=== PATIENT | female | born 1985 | race Caucasian/White ===

== ENCOUNTER 2022-04-24 10:43 | Emergency (ER) | payer MEDICAID ==
[~2022-04-24] VITALS: Ht 165.1 cm; Wt 115.0 kg
[~2022-04-24 10:43] MED LIST: CETI10CA PO; MULT-1179 PO
[2022-04-24] MEDS ORDERED: cloNIDine 0.1 mg tablet PO STA (10:54)
[2022-04-24 12:41] LABS: BASOPHILS # (AUTO) 0.1 X10'3 (0-0.2); BASOPHILS % (AUTO) 0.9 % (0-1); EOSINOPHILS # (AUTO) 0.3 X10'3 (0-0.9); EOSINOPHILS % (AUTO) 2.2 % (0-6); HEMATOCRIT 42.1 % (35.0-45.0); HEMOGLOBIN 14.1 g/dl (12.0-16.0); LYMPHOCYTES # (AUTO) 3.2 X10'3 (1.1-4.8); LYMPHOCYTES % (AUTO) 26.7 % (21-51); MEAN CORPUSCULAR HEMOGLOBIN 29.4 PG (27.0-31.0); MEAN CORPUSCULAR HGB CONC 33.5 g/dL (33.0-36.5); MEAN CORPUSCULAR VOLUME 87.6 FL (78-98); MONOCYTES # (AUTO) 0.3 X10'3 (0-0.9); MONOCYTES % (AUTO) 2.9 % (2-12); NEUTROPHILS % (AUTO) 67.3 % (42-75); PLATELET COUNT 358 X10'3 (140-440); RED BLOOD COUNT 4.81 X10'6 (4.20-5.60); RED CELL DISTRIBUTION WIDTH 13.4 % (11.5-14.5); WHITE BLOOD COUNT 11.9 X10'3 (4.5-11.0)
[2022-04-24 12:52] LABS: ALANINE AMINOTRANSFERASE 50 U/L (12-78); ALBUMIN 3.6 G/DL (3.4-5.0); ALBUMIN/GLOBULIN RATIO 0.8 (1.1-1.5); ALKALINE PHOSPHATASE 116 IU/L (46-116); ANION GAP 8 (8-16); ASPARTATE AMINO TRANSFERASE 26 U/L (10-37); BILIRUBIN,TOTAL 0.2 MG/DL (0.1-1.0); BLOOD UREA NITROGEN 9 MG/DL (7-18); BUN/CREATININE RATIO 10.1 (6.6-38.0); CALCIUM 9.1 MG/DL (8.5-10.1); CHLORIDE 99 MMOL/L (99-107); CREATININE 0.89 MG/DL (0.40-0.90); GLUCOSE 169 MG/DL (70-104); POTASSIUM 3.3 MMOL/L (3.5-5.1); SODIUM 137 MMOL/L (135-145); eGFR 71 ML/MIN
[2022-04-24 13:27] VITALS: BP 129/78
== END 2022-04-24 13:33 | disposition home or self-care (01) ==
LOC: ER 10:45
DX: I10 Essential (primary) hypertension (principal); Z88.0 Allergy status to penicillin; Z79.84 Long term (current) use of oral hypoglycemic drugs
CPT/HCPCS: 36415; 80053; 84443; 85025; 99283

== ENCOUNTER 2022-06-06 15:17 | Emergency (ER) | payer MEDICAID ==
[~2022-06-06] VITALS: Ht 165.1 cm; Wt 104.0 kg
[2022-06-06 15:53] VITALS: BP 97/61
[2022-06-06] MEDS ORDERED: NIRM1TAB PO (16:04)
== END 2022-06-06 16:40 | disposition home or self-care (01) ==
LOC: ER 15:18
DX: U07.1 COVID-19 (principal); R51.9 Headache, unspecified; R11.0 Nausea; I10 Essential (primary) hypertension; Z88.0 Allergy status to penicillin; Z88.6 Allergy status to analgesic agent
CPT/HCPCS: 99283

== ENCOUNTER 2022-12-15 10:10 | Emergency (ER) | payer MEDICAID ==
[~2022-12-15] VITALS: Ht 165.1 cm; Wt 104.5 kg
[~2022-12-15 10:10] MED LIST changes: +NIRM1TAB PO
[2022-12-15 10:28] LABS: BASOPHILS # (AUTO) 0.1 X10'3 (0-0.2); EOSINOPHILS # (AUTO) 0.3 X10'3 (0-0.9); EOSINOPHILS % (AUTO) 2.5 % (0-6); HEMATOCRIT 42.5 % (35.0-45.0); HEMOGLOBIN 14.1 g/dl (12.0-16.0); LYMPHOCYTES # (AUTO) 3.4 X10'3 (1.1-4.8); MEAN CORPUSCULAR HEMOGLOBIN 29.5 PG (27.0-31.0); MEAN CORPUSCULAR HGB CONC 33.1 g/dL (33.0-36.5); MEAN CORPUSCULAR VOLUME 88.9 FL (78-98); MEAN PLATELET VOLUME 8.8 FL (7.4-10.4); MONOCYTES # (AUTO) 0.5 X10'3 (0-0.9); MONOCYTES % (AUTO) 4.1 % (2-12); NEUTROPHILS # (AUTO) 8.8 X10'3 (1.8-7.7); NEUTROPHILS % (AUTO) 66.4 % (42-75); PLATELET COUNT 393 X10'3 (140-440); RED BLOOD COUNT 4.78 X10'6 (4.20-5.60); RED CELL DISTRIBUTION WIDTH 13.9 % (11.5-14.5); WHITE BLOOD COUNT 13.2 X10'3 (4.5-11.0)
[2022-12-15 10:40] LABS: ALANINE AMINOTRANSFERASE 35 U/L (12-78); ALBUMIN 3.8 G/DL (3.4-5.0); ALBUMIN/GLOBULIN RATIO 0.9 (1.1-1.5); ALKALINE PHOSPHATASE 112 IU/L (46-116); ASPARTATE AMINO TRANSFERASE 22 U/L (10-37); BILIRUBIN,TOTAL 0.3 MG/DL (0.1-1.0); BLOOD UREA NITROGEN 13 MG/DL (7-18); BUN/CREATININE RATIO 13.7 (10.0-20.0); CALCIUM 9.1 MG/DL (8.5-10.1); CHLORIDE 98 MMOL/L (99-107); CREATININE 0.95 MG/DL (0.40-0.90); GLUCOSE 249 MG/DL (70-104); POTASSIUM 3.8 MMOL/L (3.5-5.1); TOTAL CARBON DIOXIDE 31.8 MMOL/L (24-32); TOTAL PROTEIN 7.9 G/DL (6.4-8.2); eGFR 65 ML/MIN
[2022-12-15 10:48] LABS: MAGNESIUM 1.2 MG/DL (1.5-2.4)
[2022-12-15 10:54] LABS: ANION GAP 6 (8-16); SODIUM 136 MMOL/L (135-145)
[2022-12-15] MEDS ORDERED: LORazepam 2 mg/ml vial IV ONE (11:25)
[2022-12-15] MEDS ORDERED: meclizine 12.5mg tablet PO ONE (11:25)
[2022-12-15] MEDS ORDERED: ondansetron/PF 4mg/2ml inj IV ONE (11:25)
[2022-12-15] MEDS ORDERED: normal saline 1000ml 1,000 ML IV ONE (11:25)
[2022-12-15 12:34] LABS: CLARITY,URINE CLOUDY (Clear); COLOR,URINE STRAW (Yellow); GLUCOSE, URINE 250 mg/dl (Neg); KETONES,URINE NEGATIVE (Neg); LEUKOCYTE ESTERASE ,URINE NEGATIVE (Neg); NITRITES, URINE NEGATIVE (Neg); OCCULT BLOOD,URINE NEGATIVE (Neg); PROTEIN,URINE NEGATIVE (Neg); UA COLLECTION TYPE CLN CATCH MIDSTREAM; UROBILINOGEN,URINE 0.2 E.U/dL (0.2-1.0)
[2022-12-15 12:41] LABS: BACTERIA,URINE 2+ /HPF (Neg); SQUAMOUS EPITHELIAL CELL,UR MANY /LPF (FEW)
[2022-12-15 12:42] LABS: RBC,URINE 0-2 /HPF (0-2); WBC,URINE 0-4 /HPF (0-4)
[2022-12-15] MEDS ORDERED: magnesium 4gm in 100ml NS 100 ML IV ONE (13:15)
[2022-12-15] MEDS ORDERED: MECL-159 PO ×2 (13:18→13:20)
[2022-12-15 15:22] VITALS: BP 105/63
--- NOTE | 2022-12-15 16:59 | NUR ---
Addendum to the discharge note: written script for Meclizine given to the patient
== END 2022-12-15 17:00 | disposition home or self-care (01) ==
LOC: ER 10:10
DX: E83.42 Hypomagnesemia (principal); R42 Dizziness and giddiness; I10 Essential (primary) hypertension; Z88.0 Allergy status to penicillin; Z88.6 Allergy status to analgesic agent
CPT/HCPCS: 36415; 70450; 71045; 80053; 81001; 83735; 83880; 84484; 85025; 93005; 96361; 96365; 96366; 96375; 99285; J2060; J2405; J3475; J7030; J8597

== ENCOUNTER 2023-05-06 13:22 | Emergency (ER) | payer MEDICAID ==
[~2023-05-06] VITALS: Ht 165.1 cm; Wt 95.8 kg
[~2023-05-06 13:22] MED LIST changes: +MECL-302 PO
[2023-05-06 13:47] LABS: BASOPHILS # (AUTO) 0.1 X10'3 (0-0.2); BASOPHILS % (AUTO) 0.7 % (0-1); EOSINOPHILS # (AUTO) 0.2 X10'3 (0-0.9); EOSINOPHILS % (AUTO) 0.9 % (0-6); HEMOGLOBIN 14.9 g/dl (12.0-16.0); LYMPHOCYTES % (AUTO) 9.6 % (21-51); MEAN CORPUSCULAR HEMOGLOBIN 29.7 PG (27.0-31.0); MEAN CORPUSCULAR HGB CONC 32.4 g/dL (33.0-36.5); MEAN CORPUSCULAR VOLUME 91.7 FL (78-98); MEAN PLATELET VOLUME 8.6 FL (7.4-10.4); MONOCYTES # (AUTO) 0.7 X10'3 (0-0.9); MONOCYTES % (AUTO) 3.1 % (2-12); NEUTROPHILS % (AUTO) 85.7 % (42-75); PLATELET COUNT 479 X10'3 (140-440); RED BLOOD COUNT 5.02 X10'6 (4.20-5.60); RED CELL DISTRIBUTION WIDTH 14.2 % (11.5-14.5); WHITE BLOOD COUNT 21.1 X10'3 (4.5-11.0)
[2023-05-06 13:58] LABS: ALANINE AMINOTRANSFERASE 52 U/L (12-78); ALBUMIN 3.8 G/DL (3.4-5.0); ALBUMIN/GLOBULIN RATIO 0.9 (1.1-1.5); ALKALINE PHOSPHATASE 104 IU/L (46-116); ANION GAP 7 (8-16); ASPARTATE AMINO TRANSFERASE 24 U/L (10-37); BILIRUBIN,TOTAL 0.3 MG/DL (0.1-1.0); BLOOD UREA NITROGEN 23 MG/DL (7-18); BUN/CREATININE RATIO 14.5 (10.0-20.0); CALCIUM 9.4 MG/DL (8.5-10.1); CHLORIDE 99 MMOL/L (99-107); CREATININE 1.59 MG/DL (0.40-0.90); GLUCOSE 166 MG/DL (70-104); POTASSIUM 4.3 MMOL/L (3.5-5.1); SODIUM 135 MMOL/L (135-145); TOTAL CARBON DIOXIDE 29.1 MMOL/L (24-32); TOTAL PROTEIN 8.2 G/DL (6.4-8.2); eCRCL 43 ML/MIN; eGFR 36 ML/MIN
[2023-05-06 14:05] LABS: PRO BRAIN NATRIURETIC PEPTIDE 38 PG/ML (0-125)
[2023-05-06] MEDS ORDERED: normal saline 1000ML IV soln IV ONE (15:20)
[2023-05-06 15:52] LABS: BILIRUBIN,URINE NEGATIVE (Neg); CLARITY,URINE CLOUDY (Clear); COLOR,URINE YELLOW (Yellow); GLUCOSE, URINE NEGATIVE (Neg); KETONES,URINE 15 mg/dl (Neg); LEUKOCYTE ESTERASE ,URINE NEGATIVE (Neg); NITRITES, URINE NEGATIVE (Neg); OCCULT BLOOD,URINE NEGATIVE (Neg); PH,URINE 5.5 (4.8-8.0); PROTEIN,URINE 30 mg/dl (Neg); UROBILINOGEN,URINE 0.2 E.U/dL (0.2-1.0)
[2023-05-06 16:01] LABS: HYALINE CASTS >30 /LPF (NEGATIVE); SQUAMOUS EPITHELIAL CELL,UR MANY /LPF (FEW); UA COLLECTION TYPE CLN CATCH MIDSTREAM
[2023-05-06 16:02] LABS: BACTERIA,URINE 3+ /HPF (Neg); CAL OXALATE CRYSTALS 4+ /HPF (NEGATIVE)
[2023-05-06 16:03] LABS: RBC,URINE 0-2 /HPF (0-2)
[2023-05-06 16:04] LABS: RENAL CELLS, URINE FEW /HPF; TRANSITIONAL EPI CELLS,URINE FEW /HPF; WBC,URINE 0-4 /HPF (0-4)
[2023-05-06] MEDS ORDERED: CLIN150C2 PO (16:58)
[2023-05-06] MEDS ORDERED: CefTRIAXone 2gm/D5W 50ml BAG 50 ML IV ONE (17:15)
[2023-05-06 18:23] VITALS: TEMP 97.8
[2023-05-06 19:30] VITALS: BP 123/86; PULSE 78; RESP 11; O2SAT 99
== END 2023-05-06 19:20 | disposition home or self-care (01) ==
LOC: ER 13:23
DX: R55 Syncope and collapse (principal); I95.2 Hypotension due to drugs; K04.7 Periapical abscess without sinus
CPT/HCPCS: 36415; 71045; 80053; 81001; 83605; 83880; 84484; 85025; 87040; 93005; 96361; 96365; 99285; J0696; J7030

== ENCOUNTER 2023-05-12 12:12 | Inpatient (IN) | payer MEDICAID ==
[~2023-05-12] VITALS: Ht 165.1 cm; Wt 94.6 kg
[~2023-05-12 12:12] MED LIST changes: +CLIN150C2 PO
[2023-05-12 13:19] LABS: BASOPHILS # (AUTO) 0.1 X10'3 (0-0.2); EOSINOPHILS # (AUTO) 0.2 X10'3 (0-0.9); EOSINOPHILS % (AUTO) 1.8 % (0-6); HEMATOCRIT 43.1 % (35.0-45.0); HEMOGLOBIN 14.1 g/dl (12.0-16.0); LYMPHOCYTES # (AUTO) 3.3 X10'3 (1.1-4.8); LYMPHOCYTES % (AUTO) 25.4 % (21-51); MEAN CORPUSCULAR HEMOGLOBIN 29.9 PG (27.0-31.0); MEAN CORPUSCULAR HGB CONC 32.8 g/dL (33.0-36.5); MEAN CORPUSCULAR VOLUME 91.1 FL (78-98); MEAN PLATELET VOLUME 9.3 FL (7.4-10.4); MONOCYTES # (AUTO) 0.5 X10'3 (0-0.9); MONOCYTES % (AUTO) 3.7 % (2-12); NEUTROPHILS # (AUTO) 8.9 X10'3 (1.8-7.7); NEUTROPHILS % (AUTO) 68.1 % (42-75); PLATELET COUNT 404 X10'3 (140-440); RED BLOOD COUNT 4.73 X10'6 (4.20-5.60); RED CELL DISTRIBUTION WIDTH 13.7 % (11.5-14.5); WHITE BLOOD COUNT 13.1 X10'3 (4.5-11.0)
[2023-05-12 13:27] LABS: ALANINE AMINOTRANSFERASE 54 U/L (12-78); ALBUMIN 3.7 G/DL (3.4-5.0); ALBUMIN/GLOBULIN RATIO 0.9 (1.1-1.5); ALKALINE PHOSPHATASE 112 IU/L (46-116); ANION GAP 8 (8-16); ASPARTATE AMINO TRANSFERASE 27 U/L (10-37); BILIRUBIN,TOTAL 0.3 MG/DL (0.1-1.0); BLOOD UREA NITROGEN 11 MG/DL (7-18); BUN/CREATININE RATIO 11.3 (10.0-20.0); CALCIUM 10.4 MG/DL (8.5-10.1); CHLORIDE 99 MMOL/L (99-107); CREATININE 0.97 MG/DL (0.40-0.90); GLUCOSE 193 MG/DL (70-104); POTASSIUM 3.7 MMOL/L (3.5-5.1); SODIUM 135 MMOL/L (135-145); TOTAL CARBON DIOXIDE 28.1 MMOL/L (24-32); TOTAL PROTEIN 7.8 G/DL (6.4-8.2); eCRCL 70 ML/MIN; eGFR 64 ML/MIN
[2023-05-12 13:35] LABS: PRO BRAIN NATRIURETIC PEPTIDE 33 PG/ML (0-125)
[2023-05-12] MEDS ORDERED: nitroGLYCERIN 1gm ointment UD TP ONE (15:50)
[2023-05-12 19:51] LABS: D-DIMER 0.25 MG/L FEU (0-0.50)
[2023-05-12] MEDS ORDERED: clopidogrel 75mg tablet PO SCH (19:55)
[2023-05-12] MEDS ORDERED: AMLO5TAB16 PO (22:20)
[2023-05-12] MEDS ORDERED: PROP160C2 PO (22:20)
[2023-05-12] MEDS ORDERED: ATOR20TA66 PO (22:20)
[2023-05-12] MEDS ORDERED: METF-900 PO (22:20)
[2023-05-12] MEDS ORDERED: LISI40TA13 PO (22:20)
[2023-05-12] MEDS ORDERED: AMIT150T PO (22:20)
[2023-05-12] MEDS ORDERED: diltiazem 5mg/ml 5ml inj. IV ONE (23:15)
[2023-05-13] VITALS (9 sets, daily range): BP systolic 102–158; BP diastolic 53–75; PULSE 89–142; RESP 14–22; TEMP 96.7–98; O2SAT 98–100
[2023-05-13] MEDS ORDERED: diphenhydrAMINE 25mg capsule PO PRN (00:05)
[2023-05-13] MEDS: normal saline 1000ml 1,000 ML IV SCH ×3 (00:05→19:05)
[2023-05-13] MEDS ORDERED: bisacodyl 10mg suppository rectal RC PRN (00:05)
[2023-05-13] MEDS ORDERED: HYDROcodone/acetaminophen 5mg/325mg tablet PO PRN (00:05)
[2023-05-13] MEDS ORDERED: ondansetron 4mg rapidly disintigrating tab PO PRN (00:05)
[2023-05-13] MEDS ORDERED: magnesium hydroxide 30ml (MOM) UD suspension PO PRN (00:05)
[2023-05-13] MEDS ORDERED: morphine 2 MG/ML inj. syringe IV PRN ×2 (00:05)
[2023-05-13] MEDS ORDERED: acetaminophen 325mg tablet PO PRN ×2 (00:05)
[2023-05-13] MEDS ORDERED: HYDROcodone/acetaminophen 10/325mg tab PO PRN (00:05)
[2023-05-13] MEDS ORDERED: diphenhydrAMINE 50 mg/ml inj IV PRN (00:05)
[2023-05-13] MEDS ORDERED: ondansetron/PF 4mg/2ml inj IV PRN (00:05)
[2023-05-13] MEDS ORDERED: DEXTROSE 15 GM of carb/4 tabs (each vial/BOTTLE has 4 tablets) PO PRN ×2 (00:10)
[2023-05-13] MEDS ORDERED: insulin Lispro (HumaLOG) vial - multi-dose SQ SCH (00:10)
[2023-05-13] MEDS ORDERED: glucagon, human recombinant 1mg kit SUBCUT PRN (00:10)
[2023-05-13] MEDS ORDERED: heparin 10,000 units/1 ML INJ IV PRN (00:10)
[2023-05-13] MEDS ORDERED: heparin 25,000 UNIT/250ml bag 250 ML IV PRN ×2 (00:10→02:05)
[2023-05-13] MEDS ORDERED: heparin 10,000 units/1 ML INJ IV ONE (00:10)
[2023-05-13] MEDS ORDERED: dextrose 50%-water 50ml dispensing syringe IV PRN ×2 (00:10)
[2023-05-13] MEDS ORDERED: MESSAGE TO PHARMACY PO ONE (00:10)
[2023-05-13] MEDS ORDERED: diltiazem 5mg/ml 5ml inj. IV ONE (00:15)
[2023-05-13 07:44] LABS: BASOPHILS # (AUTO) 0.1 X10'3 (0-0.2); EOSINOPHILS # (AUTO) 0.2 X10'3 (0-0.9); EOSINOPHILS % (AUTO) 1.2 % (0-6); HEMATOCRIT 39.8 % (35.0-45.0); HEMOGLOBIN 13.1 g/dl (12.0-16.0); LYMPHOCYTES # (AUTO) 4.7 X10'3 (1.1-4.8); MEAN CORPUSCULAR HEMOGLOBIN 30.1 PG (27.0-31.0); MEAN CORPUSCULAR VOLUME 91.1 FL (78-98); MEAN PLATELET VOLUME 8.8 FL (7.4-10.4); MONOCYTES # (AUTO) 0.6 X10'3 (0-0.9); MONOCYTES % (AUTO) 3.9 % (2-12); NEUTROPHILS # (AUTO) 9.4 X10'3 (1.8-7.7); NEUTROPHILS % (AUTO) 62.9 % (42-75); PLATELET COUNT 296 X10'3 (140-440); RED BLOOD COUNT 4.36 X10'6 (4.20-5.60); RED CELL DISTRIBUTION WIDTH 13.4 % (11.5-14.5)
[2023-05-13 07:54] LABS: APTT 40 SECONDS (22-32); PROTHROMBIN TIME 10.6 SECONDS (9.0-12.0)
[2023-05-13] MEDS ORDERED: clopidogrel 75mg tablet PO SCH (08:00)
[2023-05-13] MEDS: docusate sod 100mg capsule PO SCH ×2 (08:00→19:02)
[2023-05-13 08:23] LABS: MAGNESIUM 1.5 MG/DL (1.5-2.4); PHOSPHORUS 4.1 MG/DL (2.3-4.5)
[2023-05-13 08:41] LABS: HEMOGLOBIN A1C 6.5 % (4.5-6.2)
[2023-05-13] MEDS: pantoprazole 40mg Tablet.DR PO SCH (08:47)
[2023-05-13] MEDS: clopidogrel 75mg tablet PO SCH (08:47)
[2023-05-13] MEDS ORDERED: metoprolol tartrate 1mg/ml inj IV PRN (10:50)
[2023-05-13] MEDS ORDERED: regadenoson 0.4mg/5ml syringe IV PRN (10:50)
[2023-05-13] MEDS ORDERED: nitroGLYCERIN 0.4mg SUBLingual tab SL PRN (10:50)
[2023-05-13] MEDS ORDERED: aminophylline 250mg/10ml inj. IV PRN (10:50)
[2023-05-13] MEDS ORDERED: CLIN150C99 PO (12:41)
[2023-05-13] MEDS ORDERED: LORA10TA7 PO (12:41)
[2023-05-13] MEDS ORDERED: MECL-302 PO (12:42)
[2023-05-13] MEDS ORDERED: HYDR50TA65 PO (12:43)
[2023-05-13] MEDS ORDERED: meclizine 12.5mg tablet PO PRN (13:30)
[2023-05-13] MEDS ORDERED: hydrOXYzine 25 MG tablet PO PRN (13:30)
--- NOTE | 2023-05-13 13:50 | NUR ---
pt is in nuc med for stress test, Dr Keating gave verbal order to cancel stress test as pt is ST HR 130s, report to Nadja VALADEZ, charge nurse on PCU. Pt is GCS 15 a/o x3, resp even and unlabored, pt c/o midsternal chest pain 1/10, "sharp", comes and goes.
--- NOTE | 2023-05-13 14:01 | NUR ---
Page sent Edis, [id number]-Unable to do stress due to elevated HR, partly anxiety, thanks, Anthony
[2023-05-13] MEDS: clindamycin 150mg capsule PO SCH ×2 (14:18→19:04)
[2023-05-13] MEDS ORDERED: LORazepam 0.5 MG tablet PO PRN (14:20)
[2023-05-13] MEDS: propranolol 40mg tablet PO SCH (14:56)
[2023-05-13] MEDS: lisinopril 20mg tablet PO SCH (14:57)
[2023-05-13] MEDS ORDERED: iohexol 350MG/ML 100ml bottle IV ONE (15:21)
--- NOTE | 2023-05-13 18:24 | NUR ---
Problems reprioritized. Patient report given, questions answered & plan of care reviewed with Yuli. Addendum: 05/13/23 at 1824 by Anthony Islas RN Amended: Links added.
[2023-05-13] MEDS: mag hydrox/Alum hydrox/simeth 30ml oral suspension PO PRN (19:01)
[2023-05-13] MEDS: METFORMIN HCL PO SCH (19:03)
[2023-05-13] MEDS ORDERED: amitriptyline 50mg tablet PO SCH (21:00)
[2023-05-13] MEDS ORDERED: insulin glargine (Lantus) pen - multi-dose SQ SCH (21:00)
[2023-05-13] MEDS ORDERED: temazepam 15mg capsule PO PRN (21:00)
[2023-05-13 21:51] LABS: ALANINE AMINOTRANSFERASE 63 U/L (12-78); ALBUMIN 3.1 G/DL (3.4-5.0); ALBUMIN/GLOBULIN RATIO 0.9 (1.1-1.5); ALKALINE PHOSPHATASE 80 IU/L (46-116); ANION GAP 8 (8-16); ASPARTATE AMINO TRANSFERASE 47 U/L (10-37); BILIRUBIN,TOTAL 0.2 MG/DL (0.1-1.0); BLOOD UREA NITROGEN 7 MG/DL (7-18); BUN/CREATININE RATIO 6.4 (10.0-20.0); CHLORIDE 103 MMOL/L (99-107); GLUCOSE 164 MG/DL (70-104); SODIUM 139 MMOL/L (135-145); TOTAL CARBON DIOXIDE 28.5 MMOL/L (24-32); TOTAL PROTEIN 6.5 G/DL (6.4-8.2); eCRCL 62 ML/MIN; eGFR 55 ML/MIN
[2023-05-14] VITALS (15 sets, daily range): BP systolic 88–215; BP diastolic 53–144; PULSE 67–102; RESP 13–20; TEMP 97.1–98.6; O2SAT 97–100
[2023-05-14] MEDS: clindamycin 150mg capsule PO SCH ×3 (01:37→13:39)
[2023-05-14] MEDS: normal saline 1000ml 1,000 ML IV SCH ×2 (01:39→06:05)
[2023-05-14] MEDS: mag hydrox/Alum hydrox/simeth 30ml oral suspension PO PRN ×2 (02:19→12:48)
--- NOTE | 2023-05-14 06:16 | NUR ---
Problems reprioritized. Patient report given, questions answered & plan of care reviewed with Gricelda VALADEZ. Addendum: 05/14/23 at 0616 by Dali Prince RN Amended: Links added.
[2023-05-14 07:30] LABS: BASOPHILS # (AUTO) 0.1 X10'3 (0-0.2); BASOPHILS % (AUTO) 0.8 % (0-1); EOSINOPHILS # (AUTO) 0.2 X10'3 (0-0.9); EOSINOPHILS % (AUTO) 1.8 % (0-6); HEMATOCRIT 37.7 % (35.0-45.0); HEMOGLOBIN 12.4 g/dl (12.0-16.0); LYMPHOCYTES # (AUTO) 3.2 X10'3 (1.1-4.8); LYMPHOCYTES % (AUTO) 25.1 % (21-51); MEAN CORPUSCULAR HGB CONC 32.8 g/dL (33.0-36.5); MEAN CORPUSCULAR VOLUME 91.3 FL (78-98); MONOCYTES # (AUTO) 1.1 X10'3 (0-0.9); MONOCYTES % (AUTO) 8.7 % (2-12); NEUTROPHILS # (AUTO) 8.2 X10'3 (1.8-7.7); NEUTROPHILS % (AUTO) 63.6 % (42-75); PLATELET COUNT 301 X10'3 (140-440); RED BLOOD COUNT 4.13 X10'6 (4.20-5.60); RED CELL DISTRIBUTION WIDTH 13.7 % (11.5-14.5); WHITE BLOOD COUNT 12.8 X10'3 (4.5-11.0)
[2023-05-14 07:38] LABS: ALANINE AMINOTRANSFERASE 55 U/L (12-78); ALBUMIN/GLOBULIN RATIO 0.8 (1.1-1.5); ALKALINE PHOSPHATASE 69 IU/L (46-116); ANION GAP 9 (8-16); ASPARTATE AMINO TRANSFERASE 37 U/L (10-37); BILIRUBIN,TOTAL 0.2 MG/DL (0.1-1.0); BLOOD UREA NITROGEN 9 MG/DL (7-18); CALCIUM 8.5 MG/DL (8.5-10.1); CHLORIDE 104 MMOL/L (99-107); CHOL/HDL RATIO 2.9 (0.00-4.99); CHOLESTEROL 122 MG/DL (0-200); CREATININE 0.69 MG/DL (0.40-0.90); GLUCOSE 137 MG/DL (70-104); HDL CHOLESTEROL 42 MG/DL (35-60); LDL CHOLESTEROL 60 MG/DL (50-100); POTASSIUM 3.8 MMOL/L (3.5-5.1); SODIUM 136 MMOL/L (135-145); TOTAL CARBON DIOXIDE 23.1 MMOL/L (24-32); TOTAL PROTEIN 6.6 G/DL (6.4-8.2); TRIGLYCERIDES 113 MG/DL (20-135); eCRCL 99 ML/MIN; eGFR > 90 ML/MIN
[2023-05-14] MEDS ORDERED: loratadine 10mg tablet PO SCH (08:00)
[2023-05-14] MEDS ORDERED: atorvastatin 20mg tablet PO SCH (08:00)
[2023-05-14] MEDS ORDERED: lisinopril 20mg tablet PO SCH (08:00)
[2023-05-14] MEDS ORDERED: propranolol 40mg tablet PO SCH (08:00)
--- NOTE | 2023-05-14 08:32 | NUR ---
Assumed care of pt after report from Tomas VALADEZ. Pt to [facility] via w/ tech.
--- NOTE | 2023-05-14 08:44 | NUR ---
AM meds held until after Stress test.
--- NOTE | 2023-05-14 10:11 | NUR ---
Pt back from Stress test and will pass meds. Pt is restig comfortably.
[2023-05-14] MEDS: METFORMIN HCL PO SCH (10:20)
[2023-05-14] MEDS: docusate sod 100mg capsule PO SCH (10:35)
[2023-05-14] MEDS: clopidogrel 75mg tablet PO SCH (10:36)
[2023-05-14] MEDS: pantoprazole 40mg Tablet.DR PO SCH (10:36)
[2023-05-14] MEDS: propranolol 40mg tablet PO SCH (10:38)
[2023-05-14] MEDS: lisinopril 20mg tablet PO SCH (10:40)
--- NOTE | 2023-05-14 10:45 | NUR ---
Family member did not bring Metformin in for pt, and pt declined the Colace.
--- NOTE | 2023-05-14 12:23 | NUR ---
PAGED DR. NEGRON REGARDING NITA SCAN RESULT. PAGER ID: [phone] MESSAGE: [phone]. CAROLINE VELAZQUEZ. NITA SCAN HAS RESULTED. THANK YOU. SHANTELL VALADEZ X [phone]
--- NOTE | 2023-05-14 12:50 | NUR ---
Pt medicated w/ Maalox for heartburn, and she is waiting for lunch
--- NOTE | 2023-05-14 13:47 | NUR ---
Pt c/o scratchy throat w/ swallowing and eatimg lunch. Pt was given MOM. Stress test was negative. DCing pt home.
--- NOTE | 2023-05-14 14:03 | NUR ---
Pt c/o increased scratching and burning to her throat after the MOM. She also c/o R upper chest stabbing pain, tingling face, neck and bilat arms. Pt was medicated w/ Benadryl. See VS'S.
--- NOTE | 2023-05-14 14:28 | NUR ---
Dr. Bowman was paged, and she called back. she thinks pt is anxious about DC. When BP has returned to WNL, DC pt home.
--- NOTE | 2023-05-14 15:30 | NUR ---
Pt is feeling much better. BP gradually returning to normal.
--- NOTE | 2023-05-14 16:20 | NUR ---
VSS. DC instructions given w/ understanding. Pt ambulated out w/ [employer].
== END 2023-05-14 16:49 | disposition home or self-care (01) | DRG 190 ==
LOC: ER 12:13 → ED HOLD 05-13 00:09 → EDBEDREQ 05-13 06:01 → PCU 3S 05-13 07:54
PROVIDERS: ADMIT Family Medicine; ATTEND Internal Medicine
PROC: B32T1ZZ Computerized Tomography (CT Scan) of Left Pulmonary Artery using Low Osmolar Contrast (ICD-10-PCS; principal; 2023-05-13)
PROC: B3201ZZ Computerized Tomography (CT Scan) of Thoracic Aorta using Low Osmolar Contrast (ICD-10-PCS; 2023-05-13)
PROC: B32S1ZZ Computerized Tomography (CT Scan) of Right Pulmonary Artery using Low Osmolar Contrast (ICD-10-PCS; 2023-05-13)
PROC: 4A02XM4 Measurement of Cardiac Total Activity, External Approach (ICD-10-PCS; 2023-05-14)
PROC: 3E033HZ Introduction of Radioactive Substance into Peripheral Vein, Percutaneous Approach (ICD-10-PCS; 2023-05-14)
DX: I20.0 Unstable angina (principal); I21.A1 Myocardial infarction type 2; E11.9 Type 2 diabetes mellitus without complications; I11.9 Hypertensive heart disease without heart failure; R00.0 Tachycardia, unspecified; E78.5 Hyperlipidemia, unspecified; E66.01 Morbid (severe) obesity due to excess calories; F41.9 Anxiety disorder, unspecified; F32.A Depression, unspecified; I08.0 Rheumatic disorders of both mitral and aortic valves; Z68.41 Body mass index [BMI] 40.0-44.9, adult; G43.909 Migraine, unspecified, not intractable, without status migrainosus; Z88.0 Allergy status to penicillin; Z88.6 Allergy status to analgesic agent; Z79.899 Other long term (current) drug therapy
CPT/HCPCS: 36415; 71045; 71275; 78451; 80053; 80061; 82948; 83036; 83735; 83880; 84100; 84484; 85025; 85379; 85610; 85730; 87081; 93017; 93306; 99285; A9500; G0378; J1644; J1815; J2785; J3490; J7030; Q0163; Q9967

== ENCOUNTER 2024-03-22 10:59 | Outpatient (CLI) | payer MEDICAID ==
[~2024-03-22 10:59] MED LIST changes: +AMIT150T PO; +ATOR20TA66 PO; -CETI10CA PO; -CLIN150C2 PO; +CLIN150C99 PO; +HYDR50TA65 PO; +LISI40TA13 PO; +LORA10TA7 PO; +METF-900 PO; -MULT-1179 PO; -NIRM1TAB PO; +PROP160C2 PO
== END 2024-03-22 23:59 | disposition home or self-care (01) ==
LOC: CARD DIAG 10:59
PROVIDERS: ATTEND Surgery Surgical Oncology
DX: D35.01 Benign neoplasm of right adrenal gland (principal); I08.8 Other rheumatic multiple valve diseases
CPT/HCPCS: 93306

== ENCOUNTER 2024-09-05 21:36 | Emergency (ER) | payer MEDICARE, MEDICAID ==
[~2024-09-05] VITALS: Ht 167.6 cm; Wt 98.4 kg
[2024-09-05] MEDS ORDERED: HYDR-3965 PO (22:15)
[2024-09-05] MEDS ORDERED: CHLO473M2 PO (22:15)
[2024-09-05] MEDS ORDERED: AMOX-117 PO (22:15)
[2024-09-05 22:23] VITALS: BP 126/92; PULSE 86; RESP 16; TEMP 98.6; O2SAT 98
== END 2024-09-05 22:24 | disposition home or self-care (01) ==
LOC: ER 21:37
DX: K08.89 Other specified disorders of teeth and supporting structures (principal); E11.9 Type 2 diabetes mellitus without complications; I10 Essential (primary) hypertension; Z91.011 Allergy to milk products; Z88.0 Allergy status to penicillin; Z88.8 Allergy status to other drugs, medicaments and biological substances; Z79.82 Long term (current) use of aspirin
CPT/HCPCS: 99283

== ENCOUNTER 2025-02-28 13:24 | Emergency (ER) | payer MEDICARE, MEDICAID ==
[~2025-02-28] VITALS: Ht 167.6 cm; Wt 110.9 kg
[~2025-02-28 13:24] MED LIST changes: -AMIT150T PO; +AMIT150T35 PO; +CHLO473M2 PO; -LISI40TA13 PO; +LISI40TA20 PO
[2025-02-28 13:47] VITALS: RESP 12; TEMP 98
--- NOTE | 2025-02-28 14:52 | RADIOLOGY REPORT ---
CLINICAL INDICATION: LEFT FOOT PAIN TECHNIQUE: DI FOOT, COMPLETE (3VW MIN) Comparison: None FINDINGS/IMPRESSION: : There is no evidence of acute fracture or dislocation. Soft tissues are unremarkable.
[2025-02-28 18:17] VITALS: BP 117/76; PULSE 80; O2SAT 100
--- NOTE | 2025-02-28 18:17 | Physician Documentation ---
History of Present Illness ~ Chief Complaint: Foot pain Stated Complaint: L FOOT SWELLING Time Seen by MD: 17:43 Primary Medical Doctor: Dr Meyers @ [facility] 39-year-old female with complaints of left foot pain for 3 weeks she states the pain initially started to the base of her toes on the top of her left foot without injury. Patient has come in due to increased swelling over the past few days. Patient has been using rice with out relief. No fevers or redness. Patient wears orthotic shoes. Patient states she has history of diabetes but had a tumor removed and no longer has take medications for diabetes does have good primary care Tetanus witin 5 years: No Medication Reconciliation Allergies: Coded Allergies: Penicillins (Unverified Allergy, Unknown, 02/28/25) "COLD SORES" luis (Verified Allergy, Unknown, 02/28/25) milk (Verified Adverse Reaction, Intermediate, 02/28/25) bowel distress aspirin (Unverified Adverse Reaction, Unknown, 02/28/25) ABD PAIN ibuprofen (Unverified Adverse Reaction, Unknown, 02/28/25) "UPSET STOMACH" Scheduled Amitriptyline HCl (Amitriptyline HCl), 1 TAB PO HS, (Reported) Atorvastatin Calcium (Atorvastatin Calcium), 1 TAB PO DAILY, (Reported) Chlorhexidine Gluconate (Chlorhexidine Gluconate), 15 ML PO Q12H Clindamycin HCl (Clindamycin HCl), 1 CAP PO Q6H, (Reported) Lisinopril* (Lisinopril*), 1 TAB PO DAILY, (Reported) Loratadine (Loratadine), 1 TAB PO DAILY, (Reported) Metformin Hcl* (Metformin ER*), 1 TAB PO BID, (Reported) Propranolol Hcl (Propranolol Hcl), 1 CAP PO DAILY, (Reported) Scheduled PRN Hydroxyzine HCl (Hydroxyzine HCl), 1 TAB PO Q6H PRN for anxiety, (Reported) Meclizine HCl (Meclizine HCl), 1 TAB PO Q8H PRN for dizziness/vertigo, (Reported) Past Medical History Past Medical History: Hypertension, Diabetes Past Surgical History: noncontributory Alcohol Use: None Drug Use: none Lives In: Home Occupation: employed Physical Exam Vital Signs: Temperature: 98.0, Source: Temporal, Heart Rate: 80, Respiratory Rate: 12, BP: 131/81, Pulse Oximetry: 99, Weight: 110.900 Oxygen Flow Rate: 0 Progress Results/Orders Results/Orders Orders - ALVARO BOLIVAR MD Foot, Complete (3vw Min) (02/28/25 13:53) Completed Orders - ALVARO BOLIVAR MD Foot, Complete (3vw Min) (02/28/25 13:53) Vital Signs 02/28/25 02/28/25 13:47 18:17 Temp 98.0 Pulse 80 80 Resp 12 B/P (MAP) 131/81 117/76 (90) Pulse Ox 99 100 O2 Flow Rate 0 Departure Time of Disposition: 18:14 Disposition: 01 HOME / SELF CARE / HOMELESS Impression: Primary Impression: Foot pain Condition: Stable Discharge Instructions: Sprains Additional Instructions: Your foot x-ray is negative for any soft tissue abnormalities or bone abnormalities as discussed during our encounter this could be tendinitis, as it has been going on for 3 weeks it is less likely to be an infection like cellulitis as you are already on an antibiotic which could potentially help. I would continue rice therapy you can use a postop shoe for comfort if this does help or wear shoes that are more comfortable. Also discussed during our encounter this may require some further images from primary care follow up with primary care within 1-2 weeks or sooner for further treatment and evaluation. At this time it is unclear why you have had this pain for almost a month with some swelling. Referrals: NO PRIMARY CARE PROVIDER (PCP) Education Educated: Patient Educated regarding: diagnosis, treatment, need for follow up Signature Scribe Signature: . Attestation: I have reviewed this case [id number] with the PA, including physical examination, laboratory and imaging results as appropriate. The patient was evaluated [id number] and I agree with the PA's notes. I agree with the findings, evaluation and disposition. KANDY CABELLO NP Feb 28, 2025 18:17 ALVARO BOLIVAR MD Mar 01, 2025 16:26
== END 2025-02-28 18:42 | disposition home or self-care (01) ==
LOC: ER 13:24
DX: M79.672 Pain in left foot (principal); E11.9 Type 2 diabetes mellitus without complications; I10 Essential (primary) hypertension; Z88.0 Allergy status to penicillin; Z88.6 Allergy status to analgesic agent; Z91.011 Allergy to milk products; Z91.018 Allergy to other foods; Z79.899 Other long term (current) drug therapy
CPT/HCPCS: 73630; 99283; L4360

== ENCOUNTER 2025-03-19 10:15 | Emergency (ER) | payer MEDICARE, MEDICAID ==
[~2025-03-19] VITALS: Ht 165.1 cm; Wt 112.3 kg
[2025-03-19 11:12] LABS: URINE HCG NEGATIVE (NEG)
[2025-03-19 11:15] LABS: LEUKOCYTE ESTERASE ,URINE NEGATIVE (Neg); NITRITES, URINE NEGATIVE (Neg); OCCULT BLOOD,URINE NEGATIVE (Neg)
[2025-03-19 11:16] LABS: UA COLLECTION TYPE CLN CATCH MIDSTREAM
[2025-03-19 11:25] LABS: MEAN PLATELET VOLUME 9.3 FL (7.4-10.4); RED CELL DISTRIBUTION WIDTH 14.9 % (11.5-14.5)
[2025-03-19 11:47] LABS: CREATININE 0.62 MG/DL (0.40-0.90); TOTAL CARBON DIOXIDE 25.5 MMOL/L (24-32); eCRCL 107 ML/MIN; eGFR > 90 ML/MIN
[2025-03-19 12:29] VITALS: TEMP 98.4
--- NOTE | 2025-03-19 12:57 | Physician Documentation ---
History of Present Illness ~ Chief Complaint: Abdominal Pain Stated Complaint: LOWER ABD/BLADDER PAIN Time Seen by MD: 12:52 Primary Medical Doctor: Dr Meyers @ [facility] Source: patient Mode of Arrival: Ambulatory Exam Limitations: no limitations HPI Chief Complaint: Abdominal pain Caveat: None Independent Historians: None History of Present Illness: Patient is a 39-year-old woman with history of recurrent chronic abdominal pain. Patient complains of severe sudden sharp abdominal pain this started in the right lower quadrant at approximately 8:30 a.m.. Patient states that this is worse than her usual pain. Patient thought she might have a urinary tract infection. But denies any dysuria urgency or frequency. Patient denies any fever. Patient denies any diarrhea. Patient had nausea but no vomiting. No alleviating or exacerbating factors. Review of systems: All systems were reviewed and are negative except for what is indicated in the history of present illness. Past Medical History: IBS, endometriosis, chronic low back pain Past Surgical History: Noncontributory Social History: No tobacco use, no alcohol use, no drug use Medications: Reviewed as documented Nursing Notes Allergies: Reviewed as documented in Nursing Notes Last Menstrual Period: Mar 05, 2025 Medication Reconciliation Allergies: Coded Allergies: Penicillins (Unverified Allergy, Unknown, 03/19/25) "COLD SORES" luis (Verified Allergy, Unknown, 03/19/25) milk (Verified Adverse Reaction, Intermediate, 03/19/25) bowel distress aspirin (Unverified Adverse Reaction, Unknown, 03/19/25) ABD PAIN ibuprofen (Unverified Adverse Reaction, Unknown, 03/19/25) "UPSET STOMACH" Scheduled Amitriptyline HCl (Amitriptyline HCl), 1 TAB PO HS, (Reported) Atorvastatin Calcium (Atorvastatin Calcium), 1 TAB PO DAILY, (Reported) Chlorhexidine Gluconate (Chlorhexidine Gluconate), 15 ML PO Q12H Clindamycin HCl (Clindamycin HCl), 1 CAP PO Q6H, (Reported) Lisinopril* (Lisinopril*), 1 TAB PO DAILY, (Reported) Loratadine (Loratadine), 1 TAB PO DAILY, (Reported) Metformin Hcl* (Metformin ER*), 1 TAB PO BID, (Reported) Propranolol Hcl (Propranolol Hcl), 1 CAP PO DAILY, (Reported) Scheduled PRN Hydroxyzine HCl (Hydroxyzine HCl), 1 TAB PO Q6H PRN for anxiety, (Reported) Meclizine HCl (Meclizine HCl), 1 TAB PO Q8H PRN for dizziness/vertigo, (Reported) Past Medical History Past Medical History: Hypertension, Diabetes Past Surgical History: noncontributory Last Menstrual Period: Mar 05, 2025 Alcohol Use: None Drug Use: none Lives In: Home Occupation: employed Review of Systems All Other Systems at this time: Reviewed and Negative ROS Patient denies any other acute symptoms other than above. All other systems are negative Physical Exam Vital Signs: RN Vital Signs have been reviewed: Yes, Temperature: 98.4, Source: Temporal, Heart Rate: 73, Respiratory Rate: 16, BP: 134/75, Pulse Oximetry: 96, Weight: 112.270 Oxygen Flow Rate: 0 Pulse Oximetry Reflects: adequate oxygenation Physical Exam General Appearance: No distress HEENT: Normal OP, moist oral mucosa, PERRL, EOMI Neck: supple, normal ROM, trachea midline Pulmonary: No respiratory distress, CTA, BS equal Cardiac: RRR, no murmur, rub or gallop, GI: nondistended, soft, diffuse tenderness, patient jumps when you mildly palpate her abdomen, normal bowel sounds, no guarding, no rebound Extremities: normal ROM, no swelling, non-tender Skin: intact, dry, warm, no rashes Neuro: AAOx3, speech is clear, no focal motor weakness Psych: normal affect, good eye contact, no apparent hallucination, normal speech Progress Results/Orders Results/Orders Orders - DOMINIQUE RAMIREZ MD Ketorolac Trometh 15mg/Ml Vial (Toradol (03/19/25 13:05) Ondansetron Inj. (Zofran 4mg/2ml Vial) (03/19/25 13:05) Completed Orders - DOMINIQUE RAMIREZ MD Urinalysis, Cult If Indicated (03/19/25 10:22) Hcg, Ur Ql (03/19/25 10:22) Cbc/Diff (03/19/25 10:22) BMP (03/19/25 10:22) Lipase (03/19/25 10:22) CMP (03/19/25 10:22) Vital Signs 03/19/25 03/19/25 03/19/25 03/19/25 10:20 11:13 11:30 12:29 Temp 98.4 98.4 Pulse 88 75 73 Resp 16 16 16 16 B/P (MAP) 160/82 128/78 (95) 134/75 (94) Pulse Ox 99 96 O2 Flow Rate 0 0 Laboratory Tests Test 03/19/25 10:24 03/19/25 11:16 Urine Specimen Description Cln catch midstream Urine Color Yellow Urine Clarity Clear Urine pH 6.5 Urine Specific [place] <=1.005 Urine Protein Negative Urine Glucose (UA) Negative Urine Ketones Negative Urine Occult Blood Negative Urine Nitrite Negative Urine Bilirubin Negative Urine Urobilinogen 0.2 Urine Leukocyte Esterase Negative Urine Culture Indicated Not ind Volume Urine Centrifuged 10 ml Urine HCG, Qualitative Negative Urine Comment White Blood Count 9.0 Red Blood Count 4.41 Hemoglobin 12.3 Hematocrit 37.4 Mean Corpuscular Volume 84.8 Mean Corpuscular Hemoglobin 28.0 Mean Corpuscular Hemoglobin Concent 33.0 Red Cell Distribution Width 14.9 H Platelet Count 244 Mean Platelet Volume 9.3 Neutrophils (%) (Auto) 69.7 Lymphocytes (%) (Auto) 24.5 Monocytes (%) (Auto) 3.9 Eosinophils (%) (Auto) 1.2 Basophils (%) (Auto) 0.7 Neutrophils # (Auto) 6.3 Lymphocytes # (Auto) 2.2 Monocytes # (Auto) 0.3 Eosinophils # (Auto) 0.1 Basophils # (Auto) 0.1 CBC Comment Sodium Level 139 Potassium Level 4.2 Chloride Level 105 Carbon Dioxide Level 25.5 Anion Gap 9 Blood Urea Nitrogen 10 Creatinine 0.62 Estimated GFR/1.73 m2 > 90 BUN/Creatinine Ratio 16.1 Glucose Level 104 Calcium Level 8.9 Total Bilirubin 0.4 Aspartate Amino Transf (AST/SGOT) 19 Alanine Aminotransferase (ALT/SGPT) 26 Alkaline Phosphatase 78 Total Protein 7.4 Albumin 3.4 Globulin 4.0 Albumin/Globulin Ratio 0.9 L Lipase 33 Chemistry Comments Medical Decision Making Findings Differential diagnosis includes but is not limited to: Nephrolithiasis, ureteral colic, biliary colic, cholelithiasis, ovarian torsion, urinary tract infection Laboratory data independent interpretation: CBC: NORMAL CMP: NORMAL Urinalysis: NORMAL Emergency department course/medical decision-making: PATIENT IS A 39-YEAR-OLD WOMAN WHO PRESENTS WITH THE ACUTE ON CHRONIC ABDOMINAL PAIN. PATIENT HAS HAD THIS BEFORE BUT NOT SEVERE. PATIENT'S LAB WORK IS NORMAL. SHE IS AFEBRILE AND HEMODYNAMICALLY STABLE. IMAGING AT THIS TIME ISN'T THOUGHT TO BE NEEDED. PARTIALLY GIVEN THE NORMAL LABS AND NORMAL VITAL SIGNS. PATIENT IS GIVEN ZOFRAN 4 MG IV FOR NAUSEA AND TORADOL 15 MG IV FOR HER PAIN. TEST RESULTS AND TREATMENT PLAN REVIEWED WITH THE PATIENT. PATIENT IS STABLE FOR DISCHARGE. Departure Time of Disposition: 12:57 Disposition: 01 HOME / SELF CARE / HOMELESS Impression: Primary Impression: Abdominal pain of unknown cause Condition: Stable Discharge Instructions: Abdominal Pain (Nonspecific) Additional Instructions: THE CAUSE FOR YOUR PAIN IS UNKNOWN. PLEASE FOLLOW UP WITH YOUR PRIMARY CARE DOCTOR IF THIS RECURS. RETURNS TO THE EMERGENCY DEPARTMENT IF YOUR SYMPTOMS WORSEN OR IF YOU DEVELOP A FEVER. Referrals: NO PRIMARY CARE PROVIDER (PCP) Signature Scribe Signature: . Attestation: . DOMINIQUE RAMIREZ MD Mar 19, 2025 12:57
[2025-03-19] MEDS: ondansetron/PF 4mg/2ml inj IV ONE (13:13)
[2025-03-19] MEDS: ketorolac trometh 15mg/ml vial 15 MG/ML ML IV ONE (13:14)
[2025-03-19 13:24] VITALS: BP 144/91; PULSE 75; RESP 16; O2SAT 96
== END 2025-03-19 13:26 | disposition home or self-care (01) ==
LOC: ER 10:16
DX: R10.9 Unspecified abdominal pain (principal); E11.9 Type 2 diabetes mellitus without complications; I10 Essential (primary) hypertension; Z88.0 Allergy status to penicillin; Z88.8 Allergy status to other drugs, medicaments and biological substances
CPT/HCPCS: 36415; 80053; 81003; 81025; 83690; 85025; 96374; 96375; 99284; J1885; J2405